=== PATIENT | female | born 1935 | race Caucasian/White ===

== ENCOUNTER 2021-06-17 11:44 | Observation (INO) ==
[2021-06-17] MEDS ORDERED: SODIUM CHLORIDE 0.9% 1000ML 1,000 ML IV ONE (12:24)
[2021-06-17] MEDS ORDERED: FAMOTIDINE 20MG IV PUSH 20 MG/5 ML SYR IV STA (12:29)
[2021-06-17] MEDS ORDERED: PROMETHAZINE 12.5 MG/50.5 ML BAG IV STA (12:29)
--- NOTE | 2021-06-17 12:35 | Emergency Department Note ---
Impression & Plan Pneumonia, Nausea and vomiting, Pericardial effusion, Elevated troponin ED Provider Note NAME: AZUL BAKER AGE: 86 SEX: F ARRIVES VIA: Ambulance INFORMANT: Patient, ED PROVIDER(S): Bethel Teixeira MD CHIEF COMPLAINT: cough, n/v. PLAN: Disposition: Admit MEDICAL DECISION MAKING: The patient is a pleasant 86-year-old woman with a past history of Alzheimer's dementia, hypertension, aortic stenosis who presents to the emergency department from home via EMS for acute onset nausea and vomiting with cough congestion for the past several days per EMS. She is vaccinated for COVID-19. Patient is a poor historian. On arrival the patient is uncomfortable no acute distress, afebrile febrile with blood pressure 180s/70s and vital signs otherwise stable. She appears clinically dry. She has mild epigastric discomfort without discrete tenderness to palpation. EKG without overt acute ischemia. CXR with question of left midlung zone opacity. WBC wnl. H/H approximate to prior. platelets wnl. Chemistry without acidosis. BUN/Cr > 20 c/w patient's clinically dry appearance. Electrolytes unremarkable. LFTs without significant abnormality. Initial Troponin 0.083. BNP 1800, nonspecific. Lipase is not elevated. UA without convincing evidence of infection. Covid-[address] abd/pelvis demonstrates nonspecific colitis. Intrlobular septal thickening was noted. Mild to moderate pericardial effusion seen. Upon re-evaluation the patient did feel improved following IVF hydration, zofran, phenergan, famotidine. However O2 saturation did decline to 88% on RA and so placed on NC. Treated for suspected CAP with CTX. Given elevated troponin in the setting suspected PNA. Patient and son at [facility] agreed with plan for admission. Case was discussed with Dr. Jane, [facility] hospitalist, who will evaluate the patient for admission. Triage Nursing notes reviewed and agree them. Prior medical records reviewed Vital Signs: reviewed and remarkable for hypoxia. Differential diagnosis: Gastroenteritis, food borne illness, infections, appendicitis, diverticulitis, inflammatory bowel disease, obstruction, GI bleed, biliary pathology, volvulus, as well as other pathologies. ER treatment provided: See below. Diagnostics interpreted by me: ECG: Normal sinus rhythm, 65 bpm, likely LVH, no overt ST elevation or depression. Cardiac Monitoring: An order for continuous cardiac monitoring was placed and demonstrated Normal sinus rhythm, 65 bpm, no ectopy. Laboratory studies: See below Imaging studies: See below Consultation(s): Case was discussed with Dr. jane, [facility] hospitalist, who will evaluate the patient for admission. HPI: The patient is a pleasant 86-year-old woman with a past history of Alzheimer's dementia, hypertension, aortic stenosis who presents to the emergency department from home via EMS for acute onset nausea and vomiting with cough congestion for the past several days per EMS. She is vaccinated for COVID-19. Patient is a poor historian. ROS: See above HPI for pertinent positives & negatives. A total of 10 systems reviewed and were otherwise negative. PAST MEDICAL HISTORY:See Below PAST SURGICAL HISTORY:See Below FAMILY HISTORY:See Below SOCIAL HISTORY:See Below HOME MEDICATIONS:See Below ALLERGIES:See Below VITALS:See Below PHYSICAL EXAMINATION: GENERAL: Awake, alert, uncomfortable-appearing, in no distress HENT: Normocephalic, atraumatic. Oropharynx with dry mucous membranes and otherwise unremarkable. EYES: Normal conjunctiva. Sclera non-icteric. NECK: Supple. No nuchal rigidity. FROM. No JVD. RESPIRATORY: Clear to auscultation. CARDIAC: Regular rate, normal rhythm. 3/6 systolic murmur. extremities warm and well perfused. Pulses equal. ABDOMEN: Soft, non-distended. Epigastric discomfort without discrete tenderness to palpation. No rebound or guarding. No masses. RECTAL: Deferred. MUSCULOSKELETAL: Chest examination reveals no tenderness. The back is symmetri ashley on inspection without obvious abnormality. There is no CVA tenderness to palpation. No joint edema. LOWER EXTREMITIES: Calves are equal size bilaterally and non-tender. No edema. No discoloration. NEURO: Normal sensorium. No sensory or motor deficits noted. SKIN: No rash or jaundice noted. Bethel Teixeira MD Past Med/Surg History Medical History Age-related macular degeneration, wet, both eyes Caregiver stress Cerebral microvascular disease Chronic anemia Chronic right shoulder pain Family history of colon cancer History of breast cancer HTN (hypertension) Injury of right upper arm Kidney stones Left carotid bruit Moderate aortic stenosis Multiple renal cysts Pulmonary nodules Submandibular gland mass Surgical History H/O lithotripsy History of partial mastectomy with axilary of lymphadenectomy R breast History of tonsillectomy and adenoidectomy Hx of tonsillectomy Status post biopsy of skin Family History Father Myocardial infarction Hypertension Lung cancer Mother Hypertension Denies family history of Ovarian cancer Prostate cancer Breast cancer Colorectal cancer Social History Smoking Status: Never smoker Second Hand Exposure: No; Hx Alcohol Use: No Hx Substance Use: No Preferred Language: Turkish Communication Ability: Effective Visual Impairment: Limited Hearing Ability: Normal 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 Beliefs That Will Affect Care: None marital status: Current Living Situation: Spouse Current Living Situation Comment: home with son and current occupational status: retired Other Information That Helps Us Care for You: No Feels Safe at Home: Yes Safety Concerns: Feels Safe At This Time caffeine: Yes (Coffee x 1 cup per day) during the past year weight has: remained stable Physical Activity Frequency: Daily Physical Activity Frequency Comment: stairs in home Seatbelt Use: always Sunscreen Use: No (never in sun) Assistive Devices: Walker Allergies Allergies Allergy/AdvReac Type Severity Reaction Status Date / Time oxycodone Allergy Intermediate chest pain Verified 06/17/21 15:51 acetaminophen Allergy Unknown HEART Verified 06/17/21 15:51 RACING clarithromycin Allergy Unknown unknown Verified 06/17/21 15:51 Home Meds Home Medications Medication Instructions Recorded Confirmed [id number] acid 0.4 1 tab PO DAILY 07/17/19 06/17/21 mg-lycopene 300 mcg-lutein 250 mcg tablet (Centrum Silver) Previous Rx's Medication Instructions Recorded lorazepam 0.5 mg tablet 0.25 - 0.5 mg PO DAILY PRN #20 tab 08/14/19 ramipril 2.5 mg capsule 2.5 mg PO DAILY #90 cap 11/05/20 escitalopram oxalate 20 mg tablet 20 mg PO DAILY #90 tab 12/26/20 donepezil 10 mg tablet 10 mg PO DAILY #90 tab 02/21/21 Results & Data (ED) Vital Signs Vital Signs - 24 hr 06/17/21 12:29 06/17/21 13:16 06/17/21 13:18 Temperature 36.5 C Temperature Source Oral Pulse Rate 88 62 86 Pulse Rate [Apical] Pulse Rate from SpO2 Sensor 61 Pulse Rhythm Regular Regular Pulse Strength Normal Respiratory Rate 20 16 20 Respiratory Effort / Characteristics Non-Labored Spontaneous Respiratory Depth Normal Respiratory Pattern Regular Blood Pressure 188/73 H 171/72 H Blood Pressure [Right Arm] Blood Pressure Mean 111 105 Blood Pressure Mean [Right Arm] Blood Pressure Position Sitting Blood Pressure Position [Right Arm] Pulse Oximetry 98 99 98 Oxygen Delivery Method Room Air Room Air Oxygen Flow Rate Sepsis Recent Fever Within 48 Hours No Sepsis New/Unexplained Change in Mental Status No Sepsis Action Taken by Nursing No Action Required 06/17/21 15:15 06/17/21 15:22 Temperature Temperature Source Pulse Rate Pulse Rate [Apical] 71 70 Pulse Rate from SpO2 Sensor Pulse Rhythm Pulse Strength Respiratory Rate 20 20 Respiratory Effort / Characteristics Respiratory Depth Respiratory Pattern Blood Pressure Blood Pressure [Right Arm] 199/108 H 190/66 H Blood Pressure Mean Blood Pressure Mean [Right Arm] 138 107 Blood Pressure Position Blood Pressure Position [Right Arm] Lying Pulse Oximetry 89 L 90 Oxygen Delivery Method Room Air Nasal Cannula Oxygen Flow Rate 2 Sepsis Recent Fever Within 48 Hours Sepsis New/Unexplained Change in Mental Status Sepsis Action Taken by Nursing Laboratory Data Attestation: I reviewed the patient's lab results. Result diagrams: 06/18/21 01:10 06/18/21 01:10 Lab Results 06/17/21 06/17/21 06/17/21 Range/Units 12:42 12:42 13:15 WBC 6.20 (4.8-10.8) K/uL RBC 3.23 L (4.2-5.4) M/uL Hgb 9.9 L (12.0-16.0) g/dL Hct 30.4 L (37-47) % MCV 94.1 (80-100) fL MCH 30.7 (25-34) pg MCHC 32.6 (32-36) g/dL RDW Std Deviation 46.3 (36.4-46.3) fL RDW Coeff of Deni 13.4 (11.5-14.5) % Plt Count 141 (130-400) K/uL MPV 10.1 (7.4-10.4) fL Immature Gran % (Auto) 0.2 % Neut % (Auto) 87.0 % Lymph % (Auto) 9.5 % Ware % (Auto) 2.9 % Eos % (Auto) 0.2 % Baso % (Auto) 0.2 % Neut # (Auto) 5.40 (1.4-6.5) K/uL Lymph # (Auto) 0.59 L (1.2-3.4) K/uL Ware # (Auto) 0.18 (0.11-0.59) K/uL Eos # (Auto) 0.01 (0-0.5) K/uL Baso # (Auto) 0.01 (0-0.2) K/uL Immature Gran # (Auto) 0.01 (0.00-0.02) K/uL APTT (21.0-31.0) Seconds PTT Ratio Sodium (136-145) mmol/L Potassium (3.5-5.1) mmol/L Chloride (98-107) mmol/L Carbon Dioxide (21-32) mmol/L Anion Gap (3-11) BUN (7-18) mg/dl Creatinine (0.6-1.2) mg/dl Est Cr Clr Drug Dosing ml/min Est GFR ( Amer) ml/min Est GFR (Non-Af Amer) ml/min BUN/Creatinine Ratio (10-20) Glucose (70-99) mg/dl Calcium (8.5-10.1) mg/dl Phosphorus (2.5-4.9) mg/dl Magnesium (1.8-2.4) mg/dl Total Bilirubin (0.2-1) mg/dl Direct Bilirubin (0-0.2) mg/dl AST (15-37) U/L ALT (12-78) U/L Alkaline Phosphatase (45-117) U/L Troponin I (0-0.045) ng/ml NT-Pro-B Natriuret Pep (0-1800) pg/ml Total Protein (6.4-8.2) gm/dl Albumin (3.4-5.0) gm/dl Globulin (2.5-4.0) gm/dl Albumin/Globulin Ratio (0.9-2) Lipase (73-393) U/L Procalcitonin (0-0.5) ng/ml COVID-19 Eval Order Covid19 at [facility] SARS-CoV-2 (PCR) NEGATIVE (Negative) 06/17/21 06/17/21 06/17/21 Range/Units 13:15 13:15 13:15 WBC (4.8-10.8) K/uL RBC (4.2-5.4) M/uL Hgb (12.0-16.0) g/dL Hct (37-47) % MCV (80-100) fL MCH (25-34) pg MCHC (32-36) g/dL RDW Std Deviation (36.4-46.3) fL RDW Coeff of Deni (11.5-14.5) % Plt Count (130-400) K/uL MPV (7.4-10.4) fL Immature Gran % (Auto) % Neut % (Auto) % Lymph % (Auto) % Ware % (Auto) % Eos % (Auto) % Baso % (Auto) % Neut # (Auto) (1.4-6.5) K/uL Lymph # (Auto) (1.2-3.4) K/uL Ware # (Auto) (0.11-0.59) K/uL Eos # (Auto) (0-0.5) K/uL Baso # (Auto) (0-0.2) K/uL Immature Gran # (Auto) (0.00-0.02) K/uL APTT 21.1 (21.0-31.0) Seconds PTT Ratio 0.8 Sodium 144 (136-145) mmol/L Potassium 3.9 (3.5-5.1) mmol/L Chloride 115 H (98-107) mmol/L Carbon Dioxide 25 (21-32) mmol/L Anion Gap 5.0 (3-11) BUN 24 H (7-18) mg/dl Creatinine 0.98 (0.6-1.2) mg/dl Est Cr Clr Drug Dosing 31.2 ml/min Est GFR ( Amer) 60.5 ml/min Est GFR (Non-Af Amer) 52.2 ml/min BUN/Creatinine Ratio 24.7 H (10-20) Glucose 132 H (70-99) mg/dl Calcium 8.9 (8.5-10.1) mg/dl Phosphorus 3.5 (2.5-4.9) mg/dl Magnesium 1.9 (1.8-2.4) mg/dl Total Bilirubin 0.4 (0.2-1) mg/dl Direct Bilirubin < 0.1 (0-0.2) mg/dl AST 19 (15-37) U/L ALT 27 (12-78) U/L Alkaline Phosphatase 87 (45-117) U/L Troponin I 0.083 H* (0-0.045) ng/ml NT-Pro-B Natriuret Pep 1864 H (0-1800) pg/ml Total Protein 6.6 (6.4-8.2) gm/dl Albumin 3.4 (3.4-5.0) gm/dl Globulin 3.2 (2.5-4.0) gm/dl Albumin/Globulin Ratio 1.1 (0.9-2) Lipase 319 (73-393) U/L Procalcitonin (0-0.5) ng/ml COVID-19 Eval Order SARS-CoV-2 (PCR) (Negative) 06/17/21 Range/Units 13:18 WBC (4.8-10.8) K/uL RBC (4.2-5.4) M/uL Hgb (12.0-16.0) g/dL Hct (37-47) % MCV (80-100) fL MCH (25-34) pg MCHC (32-36) g/dL RDW Std Deviation (36.4-46.3) fL RDW Coeff of Deni (11.5-14.5) % Plt Count (130-400) K/uL MPV (7.4-10.4) fL Immature Gran % (Auto) % Neut % (Auto) % Lymph % (Auto) % Ware % (Auto) % Eos % (Auto) % Baso % (Auto) % Neut # (Auto) (1.4-6.5) K/uL Lymph # (Auto) (1.2-3.4) K/uL Ware # (Auto) (0.11-0.59) K/uL Eos # (Auto) (0-0.5) K/uL Baso # (Auto) (0-0.2) K/uL Immature Gran # (Auto) (0.00-0.02) K/uL APTT (21.0-31.0) Seconds PTT Ratio Sodium (136-145) mmol/L Potassium (3.5-5.1) mmol/L Chloride (98-107) mmol/L Carbon Dioxide (21-32) mmol/L Anion Gap (3-11) BUN (7-18) mg/dl Creatinine (0.6-1.2) mg/dl Est Cr Clr Drug Dosing ml/min Est GFR ( Amer) ml/min Est GFR (Non-Af Amer) ml/min BUN/Creatinine Ratio (10-20) Glucose (70-99) mg/dl Calcium (8.5-10.1) mg/dl Phosphorus (2.5-4.9) mg/dl Magnesium (1.8-2.4) mg/dl Total Bilirubin (0.2-1) mg/dl Direct Bilirubin (0-0.2) mg/dl AST (15-37) U/L ALT (12-78) U/L Alkaline Phosphatase (45-117) U/L Troponin I (0-0.045) ng/ml NT-Pro-B Natriuret Pep (0-1800) pg/ml Total Protein (6.4-8.2) gm/dl Albumin (3.4-5.0) gm/dl Globulin (2.5-4.0) gm/dl Albumin/Globulin Ratio (0.9-2) Lipase (73-393) U/L Procalcitonin < 0.05 (0-0.5) ng/ml COVID-19 Eval Order SARS-CoV-2 (PCR) (Negative) Administered Medications Ondansetron HCl (Ondansetron Inj 2 Mg/Ml 2 Ml Vial) 4 mg IV Q6H PRN PRN Reason: Nausea Stop: 07/17/21 19:18 Last Admin: 06/17/21 20:30 Dose: 4 mg Documented by: [id number] Discontinued Medications Aspirin (Aspirin 300 Mg Supp) 300 mg TN ONE STA Stop: 06/17/21 19:40 Last Admin: 06/17/21 20:30 Dose: Not Given Documented by: [id number] Aspirin (Aspirin 81 Mg Chew) 324 mg PO ONE STA Stop: 06/17/21 19:43 Last Admin: 06/17/21 20:30 Dose: 324 mg Documented by: [id number] Sodium Chloride (Nss 1000ml) 1,000 mls @ 999 mls/hr IV .Q1H1M ONE Stop: 06/17/21 13:24 Last Infusion: 06/17/21 13:43 Dose: 0 mls/hr Documented by: [id number] Admin: 06/17/21 12:42 Dose: 999 mls/hr Documented by: [id number] Famotidine (Pepcid 20mg Iv Push) 20 mg in 5 mls @ 2.5 mls/min IV NOW STA Stop: 06/17/21 12:30 Last Admin: 06/17/21 12:42 Dose: 2.5 mls/min Documented by: [id number] Promethazine HCl (Phenergan) 12.5 mg in 50.5 mls @ 202 mls/hr IV NOW STA Stop: 06/17/21 12:43 Last Infusion: 06/17/21 12:57 Dose: 0 mls/hr Documented by: [id number] Admin: 06/17/21 12:42 Dose: 202 mls/hr Documented by: [id number] Ceftriaxone Sodium (Rocephin) 1,000 mg in 50 mls @ 100 mls/hr IV NOW STA Stop: 06/17/21 15:56 Last Infusion: 06/17/21 16:12 Dose: 0 mls/hr Documented by: [id number] Admin: 06/17/21 15:50 Dose: 100 mls/hr Documented by: [id number] Ioversol (Optiray 320 100ml) 94 ml IV ONCE ONE Stop: 06/17/21 14:51 Last Admin: 06/17/21 14:50 Dose: 94 ml Documented by: [id number] Ondansetron HCl (Ondansetron Inj 2 Mg/Ml 2 Ml Vial) Confirm Administered Dose 4 mg .ROUTE .STK-MED ONE Stop: 06/17/21 17:15 Last Admin: 06/17/21 17:18 Dose: 4 mg Documented by: [id number] Imaging Data Radiologist's Impression: Abdomen/Pelvis CT 06/17/21 12:30 CT SCAN OF THE ABDOMEN AND PELVIS WITH IV CONTRAST CLINICAL HISTORY: Generalized abdominal pain. Nausea and vomiting. COMPARISON STUDY: Abdominal CT dated 03/12/2015. TECHNIQUE: Following the IV administration of 94 cc of Optiray 320, CT scan of the abdomen and pelvis is performed from the lung bases to the proximal femora. Images are reviewed in the axial, sagittal, and coronal planes. IV contrast was administered without complication. A dose lowering technique was utilized adhe ring to the principles of ALARA. CT DOSE: 401.22 mGy.cm FINDINGS: Lung bases: The heart is enlarged noting a small to moderate pericardial effusion. The aortic valve leaflets are densely calcified. Intralobular septal thickening is noted at both lung bases. There is bibasilar scarring/atelectasis. No airspace consolidation typical for pneumonia or pleural effusion is identified. There is a small hiatal hernia. A 1.7 cm spiculated nodule is suggested in the retroareolar right breast on image #3. Liver: The contrast-enhanced liver is normal in size, contour, and attenuation. There is no intrahepatic biliary ductal dilatation. The hepatic veins and portal veins are patent. Gallbladder: Unremarkable. Spleen: Normal in size and attenuation. Pancreas: Unremarkable. Adrenal glands: Unremarkable. Kidneys: The contrast enhanced kidneys demonstrate mild cortical atrophy and are and without hydronephrosis. The kidneys enhance symmetrically. Foci of cortical scarring are noted in the right upper pole. A 4 mm nonobstructing calculus is seen on the left. Abdominal vasculature: The abdominal aorta is normal in course and caliber noting moderate atherosclerotic calcification. Bowel: There is no bowel obstruction. The colon is relatively decompressed. Infiltration is seen around the left colon. There is mild colonic diverticulosis without CT evidence of acute diverticulitis. The appendix is well-visualized and normal. Peritoneum: There is no intraperitoneal free air or abdominal ascites. Lymphadenopathy: None. Pelvic viscera: The bladder, uterus, and adnexa are normal as visualized. Skeletal structures: The skeletal structures are osteopenic. There is moderate to advanced lumbosacral spondylosis and scoliosis. No lytic or blastic lesions are seen. IMPRESSION: 1. Findings suggest a nonspecific colitis. Clinical correlation will be required. 2. No bowel obstruction. 3. A 1.7 cm spiculated nodule is suggested in the retroareolar right breast. This is not well assessed by CT and follow-up with mammography is recommended. 4. Cardiomegaly. Intralobular septal thickening at the lung bases could represent acute versus chronic congestive change. Clinical correlation will be required. 5. Left-sided nephrolithiasis. 6. Additional findings as above. ACT 112: Negative or not required by law. Electronically signed by: Bigg Diaz M.D. 06/17/2021 3:11 PM Discharge Plan Visit Data Chief Complaint: Vomiting Stated Complaint: ILLNESS ED Provider: Bethel Teixeira Discharge Problem: Pneumonia, Nausea and vomiting, Pericardial effusion, Elevated troponin Patient Disposition: Admitted As Inpatient Discharge Instructions Interventions: ED Discharge Assessment Last Done: 06/17/21 17:56 Discharge Problem: Pneumonia Qualifiers: Pneumonia type: due to unspecified organism Laterality: unspecified laterality Lung location: unspecified part of lung Qualified Code(s): J18.9 - Pneumonia, unspecified organism Nausea and vomiting Qualifiers: Vomiting type: unspecified Vomiting Intractability: non-intractable Qualified Code(s): R11.2 - Nausea with vomiting, unspecified
[2021-06-17 13:25] LABS: Basophils # (auto) 0.01 K/uL (0-0.2); Basophils % (auto) 0.2 %; Eosinophils # (auto) 0.01 K/uL (0-0.5); Eosinophils % (auto) 0.2 %; Hematocrit (blood only) 30.4 % (37-47); Hemoglobin 9.9 g/dL (12.0-16.0); Immature Granulocytes # (auto) 0.01 K/uL (0.00-0.02); Immature Granulocytes % (auto) 0.2 %; Lymphocytes # (auto) 0.59 K/uL (1.2-3.4); Lymphocytes % (auto) 9.5 %; Mean Corpuscular Hemoglobin 30.7 pg (25-34); Mean Corpuscular Hgb Conc 32.6 g/dL (32-36); Mean Corpuscular Volume 94.1 fL (80-100); Mean Platelet Volume 10.1 fL (7.4-10.4); Monocytes # (auto) 0.18 K/uL (0.11-0.59); Monocytes % (auto) 2.9 %; Platelet Count 141 K/uL (130-400); RDW Coefficient of Variation 13.4 % (11.5-14.5); RDW Standard Deviation 46.3 fL (36.4-46.3); Red Blood Count 3.23 M/uL (4.2-5.4)
--- NOTE | 2021-06-17 13:26 | XRay Report ---
XR chest 1V portable HISTORY: Atypical Chest Pain COMPARISON: Chest 07/24/2015. FINDINGS: No pneumothorax. No pleural effusions. The heart remains mildly enlarged. There is mild chr onic interstitial thickening, unchanged. No evidence for pulmonary edema. A few bibasilar linear dens ities favor scarring or subsegmental atelectasis. This is also similar to the prior study. Focal dens ity at the periphery of the left of midlung zone may be due to overlapping soft tissue. IMPRESSION: Focal density within the peripheral of the left midlung zone which is new from the prior study. This could be due to overlapping soft tissue. This may be included on the same day abdomen and pelvis CT. Otherwise, consider repeat PA and lateral views of the chest to exclude the possibility of developing airspace opacity. ACT 112: Negative or not required by law. Electronically signed by: Sid Holland M.D. 06/17/2021 1:24 PM
[2021-06-17 13:35] LABS: Partial Thromboplastin Ratio 0.8; Partial Thromboplastin Time 21.1 Seconds (21.0-31.0)
[2021-06-17 13:42] LABS: Alanine Aminotransferase 27 U/L (12-78); Albumin Level 3.4 gm/dl (3.4-5.0); Aspartate Aminotransferase 19 U/L (15-37); BUN Creatinine Ratio 24.7 (10-20); Blood Urea Nitrogen 24 mg/dl (7-18); Calcium 8.9 mg/dl (8.5-10.1); Carbon Dioxide 25 mmol/L (21-32); Chloride 115 mmol/L (98-107); Creatinine Clr Calc Pharmacy 31.2 ml/min; Est GFR (African American) 60.5 ml/min; Est GFR (Non-African American) 52.2 ml/min; Glucose 132 mg/dl (70-99); Lipase 319 U/L (73-393); Magnesium 1.9 mg/dl (1.8-2.4); Potassium 3.9 mmol/L (3.5-5.1); Sodium 144 mmol/L (136-145)
[2021-06-17 13:53] LABS: Albumin Globulin Ratio 1.1 (0.9-2); Alkaline Phosphatase 87 U/L (45-117); Bilirubin Direct < 0.1 mg/dl (0-0.2); Bilirubin,Total 0.4 mg/dl (0.2-1); Globulin 3.2 gm/dl (2.5-4.0); Phosphorus 3.5 mg/dl (2.5-4.9); Total Protein 6.6 gm/dl (6.4-8.2); Troponin I 0.083 ng/ml (0-0.045)
[2021-06-17] MEDS ORDERED: OPTIRAY 320 100ml IV ONE (14:50)
--- NOTE | 2021-06-17 15:12 | CT Scan Report ---
CT SCAN OF THE ABDOMEN AND PELVIS WITH IV CONTRAST CLINICAL HISTORY: Generalized abdominal pain. Nausea and vomiting. COMPARISON STUDY: Abdominal CT dated 03/12/2015. TECHNIQUE: Following the IV administration of 94 cc of Optiray 320, CT scan of the abdomen and pelvi s is performed from the lung bases to the proximal femora. Images are reviewed in the axial, sagittal , and coronal planes. IV contrast was administered without complication. A dose lowering technique wa s utilized adhering to the principles of ALARA. CT DOSE: 401.22 mGy.cm FINDINGS: Lung bases: The heart is enlarged noting a small to moderate pericardial effusion. The aortic valve l eaflets are densely calcified. Intralobular septal thickening is noted at both lung bases. There is b ibasilar scarring/atelectasis. No airspace consolidation typical for pneumonia or pleural effusion is identified. There is a small hiatal hernia. A 1.7 cm spiculated nodule is suggested in the retroareo lar right breast on image #3. Liver: The contrast-enhanced liver is normal in size, contour, and attenuation. There is no intrahepa tic biliary ductal dilatation. The hepatic veins and portal veins are patent. Gallbladder: Unremarkable. Spleen: Normal in size and attenuation. Pancreas: Unremarkable. Adrenal glands: Unremarkable. Kidneys: The contrast enhanced kidneys demonstrate mild cortical atrophy and are and without hydronep hrosis. The kidneys enhance symmetrically. Foci of cortical scarring are noted in the right upper tracy e. A 4 mm nonobstructing calculus is seen on the left. Abdominal vasculature: The abdominal aorta is normal in course and caliber noting moderate atheroscle rotic calcification. Bowel: There is no bowel obstruction. The colon is relatively decompressed. Infiltration is seen arou nd the left colon. There is mild colonic diverticulosis without CT evidence of acute diverticulitis. The appendix is well-visualized and normal. Peritoneum: There is no intraperitoneal free air or abdominal ascites. Lymphadenopathy: None. Pelvic viscera: The bladder, uterus, and adnexa are normal as visualized. Skeletal structures: The skeletal structures are osteopenic. There is moderate to advanced lumbosacra l spondylosis and scoliosis. No lytic or blastic lesions are seen. IMPRESSION: 1. Findings suggest a nonspecific colitis. Clinical correlation will be required. 2. No bowel obstruction. 3. A 1.7 cm spiculated nodule is suggested in the retroareolar right breast. This is not well assesse d by CT and follow-up with mammography is recommended. 4. Cardiomegaly. Intralobular septal thickening at the lung bases could represent acute versus chroni c congestive change. Clinical correlation will be required. 5. Left-sided nephrolithiasis. 6. Additional findings as above. ACT 112: Negative or not required by law. Electronically signed by: Bigg Diaz M.D. 06/17/2021 3:11 PM
[2021-06-17] MEDS ORDERED: cefTRIAXone SODIUM 1,000 MG/50 ML BAG IV STA (15:27)
--- NOTE | 2021-06-17 15:49 | History & Physical Report ---
Date of Service June 17, 2021 Assessment & Plan (1) Nausea and vomiting: Plan: Ondansetron 4mg Q4H PRN Unclear etiology as poor historian No current chest pain or shortness of breath to suggest [place] but will trend troponins. Non-specific colitis on CT but no diarrhea. Stool culture ordered. Monitor for diarrhea. ?UTI, UA pending, suprapubic pain on exam ?PNA, non-convincing CXR, procalcitonin and WBC negative (2) Elevated troponin: Plan: Serial troponins TTE to assess for NV Monitor on med/tele (3) Normocytic anemia: Plan: Repeat CBC in AM. Hgb 9.9 in realm of prior values that range from 10-11 Suspect anemia of chronic disease. Will defer further workup to outpatient setting. 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 Follow up as outpatient per family discretion (5) Pericardial effusion: Plan: Probably an incidental finding. TTE to assess. No current chest pain or shortness of breath to suggest pericarditis. Serial troponins as above. (6) Moderate aortic stenosis: Plan: Repeat TTE (7) HTN (hypertension): Plan: Current sBP 160. Taking medication intermittently. (8) Dementia: Plan: Will hold her donepezil at current time as no short term benefit. Continue Lexapro. Plan: VTE prophylaxis - held pending further workup Diet - clear liquid, heart healthy, advance as nausea and vomiting improve Disposition - observation status to med/tele Admission and Anticipated Discharge Date Admission Date: June 17, 2021 History of Present Illness Chief Complaint: Nausea and vomiting Primary Care Provider: Ketan Wagner MD Yarely Dawson is an 86 year old female who presents to the ER with nausea and vomiting per EMS. The patient also notes shortness of breath and cough. She thinks she vomited once although history is unclear as the patient has known dementia. She reports maybe feeling like being smothered in her chest. She is unsure how she got to hospital. She denies any current chest pain, nausea, vomiting or shortness of breath. No diarrhea or abdominal pain. Her also has dementia and was not able to get any history over the phone from him. Discussed with her son (Martin) - no-one was there at the time but he reports his mother woke up vomiting and she called 911 and called Peter (son who lives with them) to look after her (also named Peter). She is having a lot of issues with sleeping at night and will sometimes go to bed in the early hours of the morning and wake up late morning and will sometimes forget her pills at that point. Patient is orientated to self only. Disorientated to year (2000) and place (aware she was in hospital but thought she was in [place]). In the ER she was given famotidine and Phenergan with good resolution of her symptoms. Troponin was notably elevated at 0.083 - no chest pain or shortness of breath noted by patient. CT A/P showed a non-specific colitis, 1.7cm spiculated nodule in retroareolar right breast and intralobular septal thickening at the lung bases, small to moderate size pericardial effusions. UA is pending. CXR showed possible focal density in left midlung zone although WBC and procalcitonin negative. She was referred to Medicine for admission and ongoing management of elevated troponin, PNA, nausea and vomting. Allergies Allergy/AdvReac Type Severity Reaction Status Date / Time oxycodone Allergy Intermediate chest pain Verified 06/17/21 15:51 acetaminophen Allergy Unknown HEART Verified 06/17/21 15:51 RACING clarithromycin Allergy Unknown unknown Verified 06/17/21 15:51 Home Medications Medication Instructions Recorded Confirmed Type zheyigwh-[id number] acid 0.4 1 tab PO DAILY 07/17/19 06/17/21 History mg-lycopene 300 mcg-lutein 250 mcg tablet (Centrum Silver) lorazepam 0.5 mg tablet 0.25 - 0.5 mg PO DAILY PRN #20 tab 08/14/19 06/17/21 Rx ramipril 2.5 mg capsule 2.5 mg PO DAILY #90 cap 11/05/20 06/17/21 Rx escitalopram oxalate 20 mg tablet 20 mg PO DAILY #90 tab 12/26/20 06/17/21 Rx donepezil 10 mg tablet 10 mg PO DAILY #90 tab 02/21/21 06/17/21 Rx Past Med/Surg History Medical History Age-related macular degeneration, wet, both eyes Caregiver stress Cerebral microvascular disease Chronic anemia Chronic right shoulder pain Family history of colon cancer History of breast cancer HTN (hypertension) Injury of right upper arm Kidney stones Left carotid bruit Moderate aortic stenosis Multiple renal cysts Pulmonary nodules Submandibular gland mass Surgical History H/O lithotripsy History of partial mastectomy with axilary of lymphadenectomy R breast History of tonsillectomy and adenoidectomy Hx of tonsillectomy Status post biopsy of skin Family History Father Myocardial infarction Hypertension Lung cancer Mother Hypertension Denies family history of Ovarian cancer Prostate cancer Breast cancer Colorectal cancer Social History Smoking Status: Never smoker Second Hand Exposure: No; Hx Alcohol Use: No Hx Substance Use: No Preferred Language: Afghan Communication Ability: Effective Visual Impairment: Limited Hearing Ability: Normal Senior Reservations Agent Required: No Beliefs That Will Affect Care: None marital status: Current Living Situation: Spouse Current Living Situation Comment: home with son and current occupational status: retired Other Information That Helps Us Care for You: No Feels Safe at Home: Yes Safety Concerns: Feels Safe At This Time caffeine: Yes (Coffee x 1 cup per day) during the past year weight has: remained stable Physical Activity Frequency: Daily Physical Activity Frequency Comment: stairs in home Seatbelt Use: always Sunscreen Use: No (never in sun) Assistive Devices: Walker Review of Systems Review of Systems: All systems reviewed & are unremarkable except as noted in HPI & below Physical Exam Constitutional: well developed; + not well nourished and no acute distress Eyes: PERRL, conjunctivae normal, anicteric sclerae ENMT: external ear and nose normal, oropharynx normal Neck: trachea midline, no thyromegaly Respiratory: normal respiratory effort, lungs clear to auscultation Cardiovascular: Rate/Rhythm: regular rate and regular rhythm Heart Sounds: + murmur (systolic throughout loudest LUSB 5/6) Extremities: normal capillary refill; no calf tenderness and no pedal edema Gastrointestinal (Abdomen): Percussion/Palpation: + abdomen tender (suprapubic) and abdomen soft; no guarding and abdomen not rigid Skin: no rashes, warm and dry (venous dermatitis changes present) Psychiatric: Orientation: alert and oriented to person (self); + not oriented to place and + not oriented to time Genitourinary: no CVA tenderness Results & Data Results & Data ([facility]) Vital Signs (Past 12 Hours) Vital Signs Temp Pulse Pulse Resp BP BP Pulse Ox 06/17/21 15:22 70 20 190/66 H 90 06/17/21 15:15 71 20 199/108 H 89 L 06/17/21 13:18 86 20 98 06/17/21 13:16 62 16 171/72 H 99 06/17/21 12:29 36.5 C 88 20 188/73 H 98 Diagnostic Findings XR chest 1V portable HISTORY: Atypical Chest Pain COMPARISON: Chest 07/24/2015. FINDINGS: No pneumothorax. No pleural effusions. The heart remains mildly enlarged. There is mild chronic interstitial thickening, unchanged. No evidence for pulmonary edema. A few bibasilar linear densities favor scarring or subsegmental atelectasis. This is also similar to the prior study. Focal density at the periphery of the left of midlung zone may be due to overlapping soft tissue. IMPRESSION: Focal density within the peripheral of the left midlung zone which is new from the prior study. This could be due to overlapping soft tissue. This may be included on the same day abdomen and pelvis CT. Otherwise, consider repeat PA and lateral views of the chest to exclude the possibility of developing airspace opacity. CT SCAN OF THE ABDOMEN AND PELVIS WITH IV CONTRAST CLINICAL HISTORY: Generalized abdominal pain. Nausea and vomiting. COMPARISON STUDY: Abdominal CT dated 03/12/2015. TECHNIQUE: Following the IV administration of 94 cc of Optiray 320, CT scan of the abdomen and pelvis is performed from the lung bases to the proximal femora. Images are reviewed in the axial, sagittal, and coronal planes. IV contrast was administered without complication. A dose lowering technique was utilized adhering to the principles of ALARA. CT DOSE: 401.22 mGy.cm FINDINGS: Lung bases: The heart is enlarged noting a small to moderate pericardial effusion. The aortic valve leaflets are densely calcified. Intralobular septal thickening is noted at both lung bases. There is bibasilar scarring/atelectasis. No airspace consolidation typical for pneumonia or pleural effusion is identified. There is a small hiatal hernia. A 1.7 cm spiculated nodule is suggested in the retroareolar right breast on image #3. Liver: The contrast-enhanced liver is normal in size, contour, and attenuation. There is no intrahepatic biliary ductal dilatation. The hepatic veins and portal veins are patent. Gallbladder: Unremarkable. Spleen: Normal in size and attenuation. Pancreas: Unremarkable. Adrenal glands: Unremarkable. Kidneys: The contrast enhanced kidneys demonstrate mild cortical atrophy and are and without hydronephrosis. The kidneys enhance symmetrically. Foci of cortical scarring are noted in the right upper pole. A 4 mm nonobstructing calculus is seen on the left. Abdominal vasculature: The abdominal aorta is normal in course and caliber noting moderate atherosclerotic calcification. Bowel: There is no bowel obstruction. The colon is relatively decompressed. Infiltration is seen around the left colon. There is mild colonic diverticulosis without CT evidence of acute diverticulitis. The appendix is well-visualized and normal. Peritoneum: There is no intraperitoneal free air or abdominal ascites. Lymphadenopathy: None. Pelvic viscera: The bladder, uterus, and adnexa are normal as visualized. Skeletal structures: The skeletal structures are osteopenic. There is moderate to advanced lumbosacral spondylosis and scoliosis. No lytic or blastic lesions are seen. IMPRESSION: 1. Findings suggest a nonspecific colitis. Clinical correlation will be r equired. 2. No bowel obstruction. 3. A 1.7 cm spiculated nodule is suggested in the retroareolar right breast. This is not well assessed by CT and follow-up with mammography is recommended. 4. Cardiomegaly. Intralobular septal thickening at the lung bases could represent acute versus chronic congestive change. Clinical correlation will be required. 5. Left-sided nephrolithiasis. 6. Additional findings as above. Medications Administered ER Medications Given: NSS 1L bolus Famotidine 20mg IV Promethazine 12.5mg IV Ceftriaxone 1g IV Code Status & VTE Plan Code Status Full - son (Martin) will discuss with the rest of the family regarding this VTE Prophylaxis Plan VTE Prophylaxis will be ordered: Yes PG Care Time/CCT Total # of Minutes Spent Total Time Spent with Patient: Total time spent is greater than 50% in coordination of care (as documented) at patient's floor/unit and/or counseling patient: Coding Level of Care Code INT OBSERVATION CARE 70M LVL 3 Diagnoses Nausea and vomiting R11.2 Pericardial effusion I31.3 Elevated troponin R77.8 Moderate aortic stenosis I35.0 HTN (hypertension) I10 Dementia F03.90 Breast nodule N63.0 Normocytic anemia D64.9
[2021-06-17] MEDS ORDERED: ONDANSETRON INJ 2 MG/ML 2 ML VIAL ONE (17:14)
[2021-06-17] MEDS ORDERED: ONDANSETRON INJ 2 MG/ML 2 ML VIAL IV PRN (19:19)
[2021-06-17] MEDS ORDERED: ASPIRIN 300 MG SUPP PR STA (19:39)
[2021-06-17] MEDS ORDERED: ASPIRIN 81 MG CHEW PO STA (19:42)
[2021-06-17] MEDS ORDERED: NITROGLYCERIN SL 0.4 MG/TAB TAB SL PRN (19:53)
[2021-06-17 20:38] LABS: Appearance Urine Clear (Clear); Bilirubin Urine Negative (Negative); Blood Urine Negative (Negative); Color Urine Yellow; Glucose Urine UA Negative (Negative); Ketones Urine Negative (Negative); Leukocyte Esterase Urine Negative (Negative); Nitrite Urine Negative (Negative); Protein Urine Negative (Negative); Specific Gravity Urine > 1.045 (1.000-1.030); Urobilinogen Urine Negative (Negative); pH Urine 5.5 (4.5-7.5)
--- NOTE | 2021-06-17 22:48 | Electrocardiogram Report ---
Test Reason : Blood Pressure : / mmHG Vent. Rate : 065 BPM Atrial Rate : 065 BPM P-R Int : 202 ms QRS Dur : 086 ms QT Int : 456 ms P-R-T Axes : 082 001 021 degrees QTc Int : 474 ms Poor data quality, interpretation may be adversely affected Normal sinus rhythm Possible Inferior infarct , age undetermined Poor R wave progression, consider anterior GA vs. lead placement vs. LVH Abnormal ECG When compared with ECG of 24-JUL-2015 12:52, Inferior infarct is now Present Confirmed by Jaziel Staton ([id number]) on 06/17/2021 10:48:27 PM Referred By: REFERRED SELF Confirmed By:Jaziel Staton
[2021-06-18 01:21] LABS: Hemoglobin 9.1 g/dL (12.0-16.0); Immature Granulocytes # (auto) 0.02 K/uL (0.00-0.02); Immature Granulocytes % (auto) 0.3 %; Lymphocytes # (auto) 0.68 K/uL (1.2-3.4); Lymphocytes % (auto) 11.8 %; Mean Corpuscular Hemoglobin 30.6 pg (25-34); Mean Corpuscular Hgb Conc 32.5 g/dL (32-36); Mean Corpuscular Volume 94.3 fL (80-100); Mean Platelet Volume 9.9 fL (7.4-10.4); Monocytes # (auto) 0.25 K/uL (0.11-0.59); Monocytes % (auto) 4.4 %; Neutrophils # (auto) 4.79 K/uL (1.4-6.5); Neutrophils % (auto) 83.5 %; Platelet Count 149 K/uL (130-400); RDW Coefficient of Variation 13.6 % (11.5-14.5); RDW Standard Deviation 46.5 fL (36.4-46.3); Red Blood Count 2.97 M/uL (4.2-5.4); White Blood Count 5.74 K/uL (4.8-10.8)
[2021-06-18 02:06] LABS: BUN Creatinine Ratio 22.4 (10-20); Calcium 8.3 mg/dl (8.5-10.1); Creatinine Clr Calc Pharmacy 38.2 ml/min; Est GFR (African American) 55.1 ml/min; Est GFR (Non-African American) 47.5 ml/min; Potassium 4.7 mmol/L (3.5-5.1)
[2021-06-18 07:23] LABS: Estimated Average Glucose 97 mg/dl
[2021-06-18] MEDS ORDERED: FAMOTIDINE 20 MG in SYRINGE 3 ML IV SCH (09:00)
[2021-06-18] MEDS ORDERED: ESCITALOPRAM OXALATE 20 MG TAB PO SCH (09:00)
[2021-06-18] MEDS ORDERED: CEROVITE ADV FORMULA TAB PO SCH (09:00)
[2021-06-18] MEDS ORDERED: ENALAPRIL MALEATE 10 MG TAB PO SCH (09:00)
--- NOTE | 2021-06-18 12:42 | Hospitalist Progress Note ---
Date of Service June 18, 2021 Assessment & Plan (1) Nausea and vomiting: Plan: Improved - Unclear etiology as poor historian - No current chest pain or shortness of breath to suggest [place] but will trend troponins. - Non-specific colitis on CT but no diarrhea. Stool culture pending. Monitor for diarrhea. - UA negative - CXR: ?soft tissue vs PNA, CT-f/u shows no airspace consolidation consistent with PNA. Procalcitonin and WBC negative - Troponins as below (2) Elevated troponin: Plan: - Troponin leak , downtrending. 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 Follow up as outpatient per family discretion (5) Pericardial effusion: Plan: - TTE pending - No clinical signs of pericarditis - ?incidental - pending lyme sero (6) Moderate aortic stenosis: Plan: Repeat TTE (7) HTN (hypertension): Plan: - Normotensive - enalapril 10mg daily (8) Dementia: Plan: - hold her donepezil at current time as no short term benefit. Continue Lexapro. Plan: VTE prophylaxis - held pending further workup Diet - full liquid, heart healthy, advance as nausea and vomiting improve Disposition - med/tele Admission and Anticipated Discharge Date Admission Date: June 17, 2021 Stanley Pritchett seen at the bedside this morning. She is in no acute distress, denies nausea and vomiting today. Poor historian, believes it is 2001 but otherwise is pleasant, oriented to name, answers questions appropriately. Is not oriented to building. She denies chest pain, chest pressure, shortness of breath. Is not sure why she is in the hospital, denies vomiting and nausea today. Reports that she feels she has a "okay appetite. Review of Systems Review of Systems: Unobtainable due to cognitive status Unreliable due to dementia, but no symptoms positive on 10 point review of systems Physical Exam Physical Exam: General: Oriented to name only. No acute distress, cooperative. HEENT: Atraumatic, normocephalic. Visual acuity and hearing grossly intact. Pulm: CTAB A&P. -wheezes, -rales, -rhonchi. Symmetrical chest rise. No increase work of breathing. No respiratory distress. Cardiac: RRR, plus systolic murmur,. Radial pulses intact and symmetrical. Abdominal: Minimal tenderness suprapubic/infraumbilically without guarding or rebound,, nondistended, soft. BS present. Extremities: Chronic venous stasis changes, nontender. Results & Data Results & Data ([facility]) Vital Signs (Past 12 Hours) Vital Signs Temp Pulse Pulse Pulse Resp BP BP 06/18/21 11:59 37.3 C 67 18 118/63 06/18/21 07:41 36.9 C 61 20 133/63 06/18/21 07:20 60 06/18/21 02:56 36.9 C 61 20 153/57 H Pulse Ox 06/18/21 11:59 96 06/18/21 07:41 98 06/18/21 07:20 06/18/21 02:56 92 PG Care Time/CCT Total # of Minutes Spent Total Time Spent with Patient: Total time spent is greater than 50% in coordination of care (as documented) at patient's floor/unit and/or counseling patient: Coding Level of Care Code 00121 Subseq Hosp Care Lvl 2 Diagnoses Nausea and vomiting R11.2 Vomiting Intractability: non-intractable Vomiting type: unspecified Elevated troponin R77.8 Normocytic anemia D64.9 Breast nodule N63.0 Pericardial effusion I31.3 Moderate aortic stenosis I35.0 HTN (hypertension) I10 Dementia F03.90 (1) Nausea and vomiting Vomiting Intractability: non-intractable Vomiting type: unspecified Qualified Code(s): R11.2 - Nausea with vomiting, unspecified
[2021-06-18 14:07] LABS: Lyme Ab IgG w/WB Rflx Negative (Negative); Lyme Ab IgM w/WB Rflx Negative (Negative)
[2021-06-18] MEDS ORDERED: LORazepam 0.5 MG/1 ML VIAL IV STA (15:29)
--- NOTE | 2021-06-18 16:03 | Discharge Summary ---
Date of Service June 18, 2021 Admission HPI Per Admitting Provider Yarely Dawson is an 86 year old female who presents to the ER with nausea and vomiting per EMS. The patient also notes shortness of breath and cough. She thinks she vomited once although history is unclear as the patient has known dementia. She reports maybe feeling like being smothered in her chest. She is unsure how she got to hospital. She denies any current chest pain, nausea, vomiting or shortness of breath. No diarrhea or abdominal pain. Her also has dementia and was not able to get any history over the phone from him. Discussed with her son (Martin) - no-one was there at the time but he reports his mother woke up vomiting and she called 911 and called Peter (son who lives with them) to look after her (also named Peter). She is having a lot of issues with sleeping at night and will sometimes go to bed in the early hours of the morning and wake up late morning and will sometimes forget her pills at that point. Patient is orientated to self only. Disorientated to year (2000) and place (aware she was in hospital but thought she was in [place]). In the ER she was given famotidine and Phenergan with good resolution of her symptoms. Troponin was notably elevated at 0.083 - no chest pain or shortness of breath noted by patient. CT A/P showed a non-specific colitis, 1.7cm spiculated nodule in retroareolar right breast and intralobular septal thickening at the lung bases, small to moderate size pericardial effusions. UA is pending. CXR showed possible focal density in left midlung zone although WBC and procalcitonin negative. She was referred to Medicine for admission and ongoing management of elevated troponin, PNA, nausea and vomting. Admission Exam Per Admitting Provider Constitutional: well developed; + not well nourished and no acute distress Eyes: PERRL, conjunctivae normal, anicteric sclerae ENMT: external ear and nose normal, oropharynx normal Neck: trachea midline, no thyromegaly Respiratory: normal respiratory effort, lungs clear to auscultation Cardiovascular: Rate/Rhythm: regular rate and regular rhythm Heart Sounds: + murmur (systolic throughout loudest LUSB 5/6) Extremities: normal capillary refill; no calf tenderness and no pedal edema Gastrointestinal (Abdomen): Percussion/Palpation: + abdomen tender (suprapubic) and abdomen soft; no guarding and abdomen not rigid Skin: no rashes, warm and dry (venous dermatitis changes present) Psychiatric: Orientation: alert and oriented to person (self); + not oriented to place and + not oriented to time Genitourinary: no CVA tenderness Principal Diagnosis Enteritis Demand ischemia Discharge Exam General: Oriented to name only. No acute distress, cooperative. HEENT: Atraumatic, normocephalic. Visual acuity and hearing grossly intact. Pulm: CTAB A&P. -wheezes, -rales, -rhonchi. Symmetrical chest rise. No increase work of breathing. No respiratory distress. Cardiac: RRR, plus systolic murmur,. Radial pulses intact and symmetrical. Abdominal: Minimal tenderness suprapubic/infraumbilically without guarding or rebound,, nondistended, soft. BS present. Extremities: Chronic venous stasis changes, nontender. Discharge Data Allergies Allergy/AdvReac Type Severity Reaction Status Date / Time oxycodone Allergy Intermediate chest pain Verified 06/17/21 15:51 acetaminophen Allergy Unknown HEART Verified 06/17/21 15:51 RACING clarithromycin Allergy Unknown unknown Verified 06/17/21 15:51 Consultations 06/17/21 15:27 ED Decision to Admit Stat Ordered Studies 06/17/21 12:30 CT abd pelvis IV con only Stat CT SCAN OF THE ABDOMEN AND PELVIS WITH IV CONTRAST CLINICAL HISTORY: Generalized abdominal pain. Nausea and vomiting. COMPARISON STUDY: Abdominal CT dated 03/12/2015. TECHNIQUE: Following the IV administration of 94 cc of Optiray 320, CT scan of the abdomen and pelvis is performed from the lung bases to the proximal femora. Images are reviewed in the axial, sagittal, and coronal planes. IV contrast was administered without complication. A dose lowering technique was utilized adhering to the principles of ALARA. CT DOSE: 401.22 mGy.cm FINDINGS: Lung bases: The heart is enlarged noting a small to moderate pericardial effusion. The aortic valve leaflets are densely calcified. Intralobular septal thickening is noted at both lung bases. There is bibasilar scarring/atelectasis. No airspace consolidation typical for pneumonia or pleural effusion is identified. There is a small hiatal hernia. A 1.7 cm spiculated nodule is suggested in the retroareolar right breast on image #3. Liver: The contrast-enhanced liver is normal in size, contour, and attenuation. There is no intrahepatic biliary ductal dilatation. The hepatic veins and portal veins are patent. Gallbladder: Unremarkable. Spleen: Normal in size and attenuation. Pancreas: Unremarkable. Adrenal glands: Unremarkable. Kidneys: The contrast enhanced kidneys demonstrate mild cortical atrophy and are and without hydronephrosis. The kidneys enhance symmetrically. Foci of cortical scarring are noted in the right upper pole. A 4 mm nonobstructing calculus is seen on the left. Abdominal vasculature: The abdominal aorta is normal in course and caliber noting moderate atherosclerotic calcification. Bowel: There is no bowel obstruction. The colon is relatively decompressed. Infiltration is seen around the left colon. There is mild colonic diverticulosis without CT evidence of acute diverticulitis. The appendix is well-visualized and normal. Peritoneum: There is no intraperitoneal free air or abdominal ascites. Lymphadenopathy: None. Pelvic viscera: The bladder, uterus, and adnexa are normal as visualized. Skeletal structures: The skeletal structures are osteopenic. There is moderate to advanced lumbosacral spondylosis and scoliosis. No lytic or blastic lesions are seen. IMPRESSION: 1. Findings suggest a nonspecific colitis. Clinical correlation will be required. 2. No bowel obstruction. 3. A 1.7 cm spiculated nodule is suggested in the retroareolar right breast. This is not well assessed by CT and follow-up with mammography is recommended. 4. Cardiomegaly. Intralobular septal thickening at the lung bases could represent acute versus chronic congestive change. Clinical correlation will be required. 5. Left-sided nephrolithiasis. 6. Additional findings as above. ACT 112: Negative or not required by law. TTE Hospital Course (1) Nausea and vomiting: Madelyn presented with acute nausea/vomiting with CT consistent with nonspecific enterocolitis, symptoms resolved overnight during hospitalization. Patient refused additional care, demanded to be discharged on hospital day 1. Patient decision making by dementia and agitation, Case reviewed with her son, and reviewed etiologies as below and discharged home for follow-up. Risk/benefits of an additional overnight stay were discussed with her son, felt that risk of increased agitation and need for behavioral control with pharmacoth erapy outweighed the benefits of overnight observation. To do as outpatient: 1. Follow-up for symptoms of aortic stenosis, potential consideration of TAVR when symptomatic 2. Consider follow-up to cardiology for coronary artery disease, patient with demand ischemia in the setting of acute viral enteritis not requiring stenting or procedures at time of visit but at high risk. Patient reported that she would not want any interventions including catheterization at time of visit, discussed this with her son will who believes that she would not want interventions and would likely medical management only we will continue to follow. 3. Follow-up hemoglobin check 4. 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 Consider follow-up at family discretion 5. Follow-up LFTs after starting atorvastatin Gastroenteritis - Unclear etiology as poor historian - No current chest pain or shortness of breath, troponins were mildly elevated as discussed below - Non-specific colitis on CT but no diarrhea. Stool culture pending. No diarrhea during admission - UA negative - CXR: Initially one small area concerning for soft tissue overlap versus pneumonia follow-up CT-f/u shows no airspace consolidation consistent with PNA. Procalcitonin and WBC negative -Course consistent with resolved enteritis and demand ischemia, no antibiotics prescribed at discharge (2) Elevated troponin: EKG on admission with no acute ST/T wave changes, but poor R wave progression. -Patient had a troponin leak at 0.164 which then down trended 0.164 --> 0.147 --> 0.116 - CT noted the heart is enlarged noting a small to moderate pericardial effusion - BNP 1864 with moderatesevere aortic stenosis Patient remained clinically stable with no chest pain during admission TTE reviewed with cardiology, patient with progression of aortic stenosis to severe but with no symptoms of aortic stenosis. She had normal systolic function and normal pulmonary pressure, no wall motion abnormalities were appreciated. A small incidental pericardial effusion was noted. Discussed these findings with patient and her son, patient reported even if this were to worsen she would not want interventions or catheterization at this time. -Patient did not want further interventions during her hospitalization, case was reviewed with her nurse and she was discharged home with close follow-up to her primary care provider No arrhythmia noted on telemetry during admission Started on atorvastatin 40 mg daily (3) Normocytic anemia: -CBC 9.1, no signs of bleeding. Patient refused further needlesticks and draws during admission, recommended continued follow-up as outpatient. 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 Follow up as outpatient per family discretion (5) Pericardial effusion: -Suspect incidental, Lyme serology pending at time of discharge, no clinical signs of pericarditis or tamponade. Recommended follow-up as outpatient, may consider repeat echo as outpatient (6) Moderate aortic stenosis: Repeat TTE showed progression to severe, patient denies shortness of breath/chest pain/exercise limitation. Consistent with moderate progression to severe aortic stenosis without symptoms to prompt TAVR. Patient reports she would not want this procedure even if indicated at this time. Discussed with her son, discharged to follow-up as outpatient (7) HTN (hypertension): - Normotensive - enalapril 10mg daily (8) Dementia: - held her donepezil at current time as no short term benefit. Continue Lexapro. On day of discharge patient was able to get up from bed independently, and walked with a brisk brace to the elevators from the unit with no impairment to strength, or balance. Patient refusing additional services, discussed with son, given her rapid ambulation without chest pain or shortness of breath and refusal to engage with other hospital services patient was discharged home and PT additional evaluation was deferred. Total Time Total Time Spent Total Time Spent (In Minutes): Total time spent day of discharge including direct patient care, provider communication, review of labs and images, and documentation approximately 90 minutes. Discharge Plan Discharge Items Patient Disposition: Home - Self-Care Reason For Visit: COLITIS, NAUSEA AND VOMITING, PERICARDIAL EFFUSION Discharge Diagnosis: Enterocolitis Demand Ischemia Aortic Stenosis Activity: Per Instructions section Non-emergency contact: Primary Care Provider and Distribution Designer Call non-emergency contact if: you have any medication questions, your symptoms worsen, your pain is not controlled, your pain is worsening and your pain is unusual for you Follow-up/Referrals: Ketan Wagner MD [Primary Care Provider] - 06/25/21 11:00 am Diet: Regular Addtl Attending Provider Instructions: You are seen in the hospital for an acute illness with nausea and vomiting. Yo ur nausea and vomiting and symptoms improved overnight. You are noted to have slightly elevated heart markers, these were decreasing at time of discharge. An ultrasound of your heart showed normal pumping function with severe aortic stenosis. This was discussed with you and your son. No acute interventions are warranted, it is recommended that you follow-up as an outpatient with your primary care provider and potentially with cardiology as an outpatient. It is been recommended that you take a cholesterol medicine to help protect you from heart attacks, called atorvastatin, discussed below. You have been prescribed a medication, atorvastatin. This medication reduces cholesterol and can also help prevent heart attacks. Please take atorvastatin 40 mg once daily. Please follow-up with your primary care physician regarding this medication, you should have LFTs (blood work) checked in approximately 2 weeks. If you develop any new or worsening symptoms including fever, chills, sweats, chest pain, chest pressure, difficulty breathing, uncontrolled nausea/vomiting, rash, wheezing, passing out or nearly passing out, bleeding, black/bloody bowel movements, or other new or concerning symptoms please call your primary care physician at [phone], or call 911 for re-evaluation in the emergency department if you are very concerned. A followup appointment is being scheduled for you with Dr. Wagner. You should be seen seen within 10 days. You should receive a call to confirm this appointment. If you do not receive a call within 48 hours to confirm this appointment, or need to change this appointment, please call the provider's office at [phone]. Pending Studies at Discharge: No Stand-Alone Forms: My [facility] [employer], Smoking Cessation Medications and DC Order Prescriptions: New atorvastatin 40 mg tablet 40 mg PO DAILY 30 Days Qty: 30 RF: 0 Continued lorazepam 0.5 mg tablet 0.25 - 0.5 mg PO DAILY PRN (Reason: anxiety) Qty: 20 RF: 0 ramipril 2.5 mg capsule 2.5 mg PO DAILY Qty: 90 RF: 3 escitalopram oxalate 20 mg tablet 20 mg PO DAILY Qty: 90 RF: 3 donepezil 10 mg tablet 10 mg PO DAILY Qty: 90 RF: 3 Centrum Silver 0.4-300-250 mg-mcg-mcg tablet 1 tab PO DAILY RF: 0 Discharge Orders: Discharge Order (Routine); Ordered 06/18/21 Ordered By: Ketan Quevedo Admission Data Admit Date/Time: 06/17/21 15:47 Attending Provider: Ketan Quevedo Admit Provider: Rupesh Jane Primary Care Provider: Ketan Wagner Other Providers: Ketan Quevedo Other Interventions: Discharge Summary Assessment (RN) Last Done: 06/18/21 16:15 Coding Level of Care Code D/C DAY MANAGEMENT >30 MINS Diagnoses Nausea and vomiting R11.2 Vomiting Intractability: non-intractable Vomiting type: unspecified Elevated troponin R77.8 Normocytic anemia D64.9 Breast nodule N63.0 Pericardial effusion I31.3 Moderate aortic stenosis I35.0 HTN (hypertension) I10 Dementia F03.90
--- NOTE | 2021-06-18 17:36 | XCELERA ---
[id number]
== END 2021-06-18 18:14 | disposition home or self-care (01) ==
LOC: 2N 11:44 → ED 11:44 → SUATTDRO 15:47 → 2N 17:56
DX: Z79.899 Other long term (current) drug therapy; Z85.3 Personal history of malignant neoplasm of breast; J18.9 Pneumonia, unspecified organism; R77.8 Other specified abnormalities of plasma proteins; Z20.822 Contact with and (suspected) exposure to COVID-19; R11.2 Nausea with vomiting, unspecified; I31.3 Pericardial effusion (noninflammatory); Z88.1 Allergy status to other antibiotic agents; D64.9 Anemia, unspecified; Z82.49 Family history of ischemic heart disease and other diseases of the circulatory system; Z88.6 Allergy status to analgesic agent; Z80.0 Family history of malignant neoplasm of digestive organs; I10 Essential (primary) hypertension; G93.9 Disorder of brain, unspecified; I35.0 Nonrheumatic aortic (valve) stenosis; Z88.5 Allergy status to narcotic agent

== ENCOUNTER 2022-06-01 10:56 | Inpatient (IN) ==
[2022-06-01 12:56] LABS: Basophils # (auto) 0.02 K/uL (0-0.2); Basophils % (auto) 0.5 %; Eosinophils # (auto) 0.07 K/uL (0-0.50); Eosinophils % (auto) 1.7 %; Hematocrit (blood only) 29.1 % (34.1-44.9); Hemoglobin 9.9 g/dl (12.0-16.0); Immature Granulocytes # (auto) 0.01 K/uL (0.00-0.02); Immature Granulocytes % (auto) 0.2 %; Lymphocytes # (auto) 1.17 K/uL (1.2-3.4); Lymphocytes % (auto) 29.1 %; Mean Corpuscular Hemoglobin 31.6 pg (25.0-34.0); Mean Platelet Volume 10.1 fL (9.4-12.3); Monocytes # (auto) 0.31 K/uL (0.24-0.82); Monocytes % (auto) 7.7 %; Neutrophils # (auto) 2.44 K/uL (1.4-6.5); Neutrophils % (auto) 60.8 %; Platelet Count 143 K/uL (130-400); RDW Coefficient of Variation 12.8 % (11.5-14.5); RDW Standard Deviation 43.8 fL (36.4-46.3); Red Blood Count 3.13 M/uL (3.93-5.22); White Blood Count 4.02 K/ul (4.8-10.8)
[2022-06-01 13:24] LABS: Albumin Globulin Ratio 1.8 (0.9-2); Albumin Level 3.9 gm/dl (3.4-5.0); BUN Creatinine Ratio 26.9 (10-20); Bilirubin,Total 0.8 mg/dl (0.2-1.0); Creatinine Clr Calc Pharmacy 38.3 ml/min; Est GFR (Non-African American) 55.3 ml/min; Globulin 2.2 gm/dl (2.5-4.0); Total Protein 6.1 gm/dl (6.0-8.3)
[2022-06-01 13:45] LABS: Appearance Urine Clear (Clear); Bacteria Urine Automated Negative (Negative); Bilirubin Urine Negative (Negative); Blood Urine Negative (Negative); Color Urine Yellow; Epithelial Cell Urine Auto >30 /lpf (0-5); Glucose Urine UA Negative (Negative); Ketones Urine Negative (Negative); Leukocyte Esterase Urine Trace (Negative); Nitrite Urine Negative (Negative); Protein Urine Negative (Negative); RBC Urine Automated 0-4 /hpf (0-4); Specific Gravity Urine 1.007 (1.000-1.030); Urobilinogen Urine Negative (Negative); pH Urine 7.5 (4.5-7.5)
--- NOTE | 2022-06-01 15:25 | Emergency Department Note ---
Impression & Plan Cognitive decline, Hypertension ED Provider Note NAME: AZUL BAKER AGE: 87 SEX: F ARRIVES VIA: Ambulance INFORMANT: Patient, EMS ED PROVIDER(S): Bethel Teixeira MD CHIEF COMPLAINT: Dementia. Placement PLAN: Disposition: Home MEDICAL DECISION MAKING: The patient is a pleasant 87-year-old woman with a past medical history of dementia, aortic stenosis, hypertension who presents to the emergency department via EMS after the patient and her spouse were found by her son and decision- maker where they had apparently locked themselves in the bedroom and the son had noticed that the stove was left on. This prompted the son to be concerned that the patient and her spouse were no longer safe to be living at home under their current conditions. The patient does live at home with another son who is traveling for work and not around frequently. On arrival the patient is no acute distress, afebrile, BP 170s/50 and otherwise stable vital signs. She is mildly confused to situation unsure of exactly why she is in the emergency department thinking she was brought here for a "checkup". She denies any physical complaints. She reports feels anxious that her who is also a patient in her room is given her stress as he was noted to be getting out of his stretcher to "make is bed". EKG without overt acute ischemia. WBC 4K nonspecific. H/H similar to prior. Platelets within normal limits. Chemistry without metabolic acidosis. Electrolytes and LFTs without significant abnormality. TSH within normal limits. UA without convincing evidence of infection. COVID-19 RNA, PERRY test was negative. Our case management team did meet with the patient's son, the patient and her spouse and it was decided that the patient and her spouse are not able to live at home safely. Referrals were made but none are available to have the patient placed today. [facility] is expected to have beds tomorrow. Thus we will proceed with admission for further management until placement is possible. Case was discussed with Dr. Harper, [facility] hospitalist, who will evaluate the patient for admission. Triage Nursing notes reviewed and agree them. Prior medical records reviewed Vital Signs: reviewed and remarkable for hypertension. Differential diagnosis: Infection, dehydration, metabolic abnormality, hypo/hyperglycemia, electrolyte disturbance, anemia, hypoxia, cardiac sources, intracerebral event, toxicologic, neurologic, as well as other pathologies. ER treatment provided: See below. Diagnostics interpreted by me: ECG: Normal sinus rhythm, 63 bpm, no ectopy, no overt ST elevation or dep ression, QTC 456, QRS 92. Cardiac Monitoring: An order for continuous cardiac monitoring was placed and demonstrated Normal sinus rhythm, 63 bpm, no ectopy. Laboratory studies: See below Imaging studies: See below Consultation(s): Dr. Harper, [facility] hospitalist HPI: The patient is a pleasant 87-year-old woman with a past medical history of dementia, aortic stenosis, hypertension who presents to the emergency department via EMS after the patient and her spouse were found by her son and decision- maker where they had apparently locked themselves in the bedroom and the son had noticed that the stove was left on. This prompted the son to be concerned that the patient and her spouse were no longer safe to be living at home under their current conditions. The patient does live at home with another son who is traveling for work and not around frequently. ROS: See above HPI for pertinent positives & negatives. A total of 10 systems reviewed and were otherwise negative. VITALS:See Below PHYSICAL EXAMINATION: GENERAL: Awake, alert, well-appearing, in no distress, pleasantly confused. HENT: Normocephalic, atraumatic. Oropharynx unremarkable. EYES: Normal conjunctiva. Sclera non-icteric. NECK: Supple. No nuchal rigidity. FROM. No JVD. RESPIRATORY: Clear to auscultation. CARDIAC: Regular rate, normal rhythm. Extremities warm and well perfused. Pulses equal. ABDOMEN: Soft, non-distended. No tenderness to palpation. No rebound or guarding. No masses. RECTAL: Deferred. MUSCULOSKELETAL: Chest examination reveals no tenderness. The back is symmetrical on inspection without obvious abnormality. There is no CVA tenderness to palpation. No joint edema. LOWER EXTREMITIES: Calves are equal size bilaterally and non-tender. No edema. No discoloration. NEURO: Alert to self and place. Confused to situation. No focal sensory or motor deficits noted. SKIN: No rash or jaundice noted. Bethel Teixeira MD Past Med/Surg History Medical History Age-related macular degeneration, wet, both eyes Caregiver stress Cerebral microvascular disease Chronic anemia Chronic right shoulder pain Family history of colon cancer History of breast cancer HTN (hypertension) Injury of right upper arm Kidney stones Left carotid bruit Moderate aortic stenosis Multiple renal cysts Nausea and vomiting Pneumonia Pulmonary nodules Submandibular gland mass Surgical History H/O lithotripsy History of partial mastectomy with axilary of lymphadenectomy R breast History of tonsillectomy and adenoidectomy Hx of tonsillectomy Status post biopsy of skin Family History Father Myocardial infarction Hypertension Lung cancer Mother Hypertension Denies family history of Ovarian cancer Prostate cancer Breast cancer Colorectal cancer Social History Smoking Status: Never smoker Second Hand Exposure: No; Do You Dip or Chew Tobacco: No; Hx Alcohol Use: No Hx Substance Use: No Preferred Language: Romanian Communication Ability: Effective Visual Impairment: Limited Hearing Ability: Normal Communication Electronic Technician Required: No Beliefs That Will Affect Care: None marital status: Current Living Situation: Alone, Spouse and Family Current Living Situation Comment: home with son and current occupational status: retired Other Information That Helps Us Care for You: No Feels Safe at Home: Yes Safety Concerns: Feels Safe At This Time caffeine: Yes (Coffee x 1 cup per day) during the past year weight has: remained stable Physical Activity Frequency: Daily Physical Activity Frequency Comment: stairs in home Seatbelt Use: always Sunscreen Use: No (never in sun) Assistive Devices: Glasses Allergies Allergies Allergy/AdvReac Type Severity Reaction Status Date / Time oxycodone Allergy Intermediate chest pain Verified 01/13/22 09:01 acetaminophen Allergy Unknown HEART Verified 01/13/22 09:01 RACING clarithromycin Allergy Unknown unknown Verified 01/13/22 09:01 Home Meds Home Medications Medication Instructions Recorded Confirmed voaxifho-zvi-hehcc acid 0.4 1 tab PO DAILY 07/17/19 01/13/22 mg-lycopene 300 mcg-lutein 250 mcg tablet (Centrum Silver) Previous Rx's Medication Instructions Recorded lorazepam 0.5 mg tablet 0.25 - 0.5 mg PO DAILY PRN anxiety 08/14/19 #20 tabs ramipril 2.5 mg capsule 2.5 mg PO DAILY #90 caps 11/05/20 atorvastatin 40 mg tablet 40 mg PO DAILY 30 days #90 tabs 07/16/21 escitalopram oxalate 20 mg tablet 20 mg PO DAILY #90 tabs 01/27/22 donepezil 10 mg tablet 10 mg PO DAILY #90 tabs 04/23/22 Results & Data (ED) Vital Signs Vital Signs - 24 hr 06/01/22 11:02 06/01/22 12:49 06/01/22 12:49 Temperature 36.8 C Temperature Source Oral Pulse Rate 66 Pulse Rate [Apical] 59 L Respiratory Rate 18 18 Respiratory Effort / Characteristics Non-Labored Spontaneous Non-Labored Spontaneous Respiratory Depth Normal Normal Respiratory Pattern Regular Blood Pressure 178/57 H Blood Pressure [Right Arm] 178/65 H Blood Pressure Mean 97 Blood Pressure Mean [Right Arm] 102 Pulse Oximetry 98 98 98 Oxygen Delivery Method Room Air Room Air Room Air Sepsis Recent Fever Within 48 Hours No Sepsis New/Unexplained Change in Mental Status No Sepsis Action Taken by Nursing No Action Required 06/01/22 14:00 06/01/22 15:42 Temperature Temperature Source Pulse Rate Pulse Rate [Apical] 67 71 Respiratory Rate 16 16 Respiratory Effort / Characteristics Non-Labored Spontaneous Non-Labored Spontaneous Respiratory Depth Normal Normal Respiratory Pattern Blood Pressure Blood Pressure [Right Arm] 130/61 135/55 L Blood Pressure Mean Blood Pressure Mean [Right Arm] 84 81 Pulse Oximetry 98 98 Oxygen Delivery Method Room Air Room Air Sepsis Recent Fever Within 48 Hours Sepsis New/Unexplained Change in Mental Status Sepsis Action Taken by Nursing Laboratory Data Attestation: I reviewed the patient's lab results. Result diagrams: 06/01/22 12:46 06/01/22 12:46 Lab Results 06/01/22 06/01/22 06/01/22 Range/Units 12:46 12:46 12:46 WBC 4.02 L (4.8-10.8) K/ul RBC 3.13 L (3.93-5.22) M/uL Hgb 9.9 L (12.0-16.0) g/dl Hct 29.1 L (34.1-44.9) % MCV 93.0 (80.0-100.0) fL MCH 31.6 (25.0-34.0) pg MCHC 34.0 (32.0-36.0) g/dL RDW Std Deviation 43.8 (36.4-46.3) fL RDW Coeff of Deni 12.8 (11.5-14.5) % Plt Count 143 (130-400) K/uL MPV 10.1 (9.4-12.3) fL Immature Gran % (Auto) 0.2 % Neut % (Auto) 60.8 % Lymph % (Auto) 29.1 % [place] % (Auto) 7.7 % Eos % (Auto) 1.7 % Baso % (Auto) 0.5 % Neut # (Auto) 2.44 (1.4-6.5) K/uL Lymph # (Auto) 1.17 L (1.2-3.4) K/uL [place] # (Auto) 0.31 (0.24-0.82) K/uL Eos # (Auto) 0.07 (0-0.50) K/uL Baso # (Auto) 0.02 (0-0.2) K/uL Immature Gran # (Auto) 0.01 (0.00-0.02) K/uL Sodium 142 (136-145) mmol/L Potassium 4.0 (3.5-5.1) mmol/L Chloride 110 H (98-107) mmol/L Carbon Dioxide 28 (21-32) mmol/L Anion Gap 4 (3-11) BUN 25 H (6-23) mg/dl Creatinine 0.93 (0.6-1.2) mg/dl Est Cr Clr Drug Dosing 38.3 ml/min Est GFR ( Amer) 64.0 ml/min Est GFR (Non-Af Amer) 55.3 ml/min BUN/Creatinine Ratio 26.9 H (10-20) Glucose 84 (70-99(Fasting)) mg/dl Calcium 9.0 (8.5-10.1) mg/dl Total Bilirubin 0.8 (0.2-1.0) mg/dl AST 21 (13-39) U/L ALT 21 (7-52) U/L Alkaline Phosphatase 93 (34-104) U/L Total Protein 6.1 (6.0-8.3) gm/dl Albumin 3.9 (3.4-5.0) gm/dl Globulin 2.2 L (2.5-4.0) gm/dl Albumin/Globulin Ratio 1.8 (0.9-2) TSH 2.232 (0.300-4.500) uIu/ml Urine Color Urine Appearance (Clear) Urine pH (4.5-7.5) Ur Specific [place] (1.000-1.030) Urine Protein (Negative) Urine Glucose (UA) (Negative) Urine Ketones (Negative) Urine Blood (Negative) Urine Nitrite (Negative) Urine Bilirubin (Negative) Urine Urobilinogen (Negative) Ur Leukocyte Esterase (Negative) Urine WBC (Auto) (0-5) /hpf Urine RBC (Auto) (0-4) /hpf U Hyaline Cast (Auto) (0-5) /lpf U Epithel Cells (Auto) (0-5) /lpf Urine Bacteria (Auto) (Negative) SARS-CoV-2, RNA, NAAT (NEGATIVE) 06/01/22 06/01/22 Range/Units 13:09 13:10 WBC (4.8-10.8) K/ul RBC (3.93-5.22) M/uL Hgb (12.0-16.0) g/dl Hct (34.1-44.9) % MCV (80.0-100.0) fL MCH (25.0-34.0) pg MCHC (32.0-36.0) g/dL RDW Std Deviation (36.4-46.3) fL RDW Coeff of Deni (11.5-14.5) % Plt Count (130-400) K/uL MPV (9.4-12.3) fL Immature Gran % (Auto) % Neut % (Auto) % Lymph % (Auto) % [place] % (Auto) % Eos % (Auto) % Baso % (Auto) % Neut # (Auto) (1.4-6.5) K/uL Lymph # (Auto) (1.2-3.4) K/uL [place] # (Auto) (0.24-0.82) K/uL Eos # (Auto) (0-0.50) K/uL Baso # (Auto) (0-0.2) K/uL Immature Gran # (Auto) (0.00-0.02) K/uL Sodium (136-145) mmol/L Potassium (3.5-5.1) mmol/L Chloride (98-107) mmol/L Carbon Dioxide (21-32) mmol/L Anion Gap (3-11) BUN (6-23) mg/dl Creatinine (0.6-1.2) mg/dl Est Cr Clr Drug Dosing ml/min Est GFR ( Amer) ml/min Est GFR (Non-Af Amer) ml/min BUN/Creatinine Ratio (10-20) Glucose (70-99(Fasting)) mg/dl Calcium (8.5-10.1) mg/dl Total Bilirubin (0.2-1.0) mg/dl AST (13-39) U/L ALT (7-52) U/L Alkaline Phosphatase (34-104) U/L Total Protein (6.0-8.3) gm/dl Albumin (3.4-5.0) gm/dl Globulin (2.5-4.0) gm/dl Albumin/Globulin Ratio (0.9-2) TSH (0.300-4.500) uIu/ml Urine Color Yellow Urine Appearance Clear (Clear) Urine pH 7.5 (4.5-7.5) Ur Specific [place] 1.007 (1.000-1.030) Urine Protein Negative (Negative) Urine Glucose (UA) Negative (Negative) Urine Ketones Negative (Negative) Urine Blood Negative (Negative) Urine Nitrite Negative (Negative) Urine Bilirubin Negative (Negative) Urine Urobilinogen Negative (Negative) Ur Leukocyte Esterase Trace H (Negative) Urine WBC (Auto) 1-5 (0-5) /hpf Urine RBC (Auto) 0-4 (0-4) /hpf U Hyaline Cast (Auto) 1-5 (0-5) /lpf U Epithel Cells (Auto) >30 H (0-5) /lpf Urine Bacteria (Auto) Negative (Negative) SARS-CoV-2, RNA, NAAT NEGATIVE (NEGATIVE) Administered Medications Enoxaparin Sodium (Enoxaparin Inj 40 Mg/0.4 Ml Syr) 40 mg SQ Q24H JUAN RAMON Stop: 07/01/22 19:29 Last Admin: 06/01/22 20:51 Dose: 40 mg Documented By: USP Discharge Plan Visit Data Chief Complaint: Illness Stated Complaint: EVAL FOR PLACEMENT ED Provider: Bethel Teixeira Discharge Problem: Cognitive decline, Hypertension Patient Disposition: Admitted As Inpatient Discharge Instructions Interventions: ED Discharge Assessment Last Done: 06/01/22 18:27
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
--- NOTE | 2022-06-01 16:32 | Electrocardiogram Report ---
Test Reason : Blood Pressure : / mmHG Vent. 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
[2022-06-01] MEDS: ENOXAPARIN INJ 40 MG/0.4 ML SYR SQ SCH (20:51)
[2022-06-02] MEDS ORDERED: ENALAPRIL MALEATE 10 MG TAB PO SCH (09:00)
[2022-06-02] MEDS: ATORVASTATIN 40 MG TAB PO SCH (09:53)
[2022-06-02] MEDS: ESCITALOPRAM OXALATE 20 MG TAB PO SCH (09:53)
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
[2022-06-02] MEDS ORDERED: SODIUM CHLORIDE 0.9% 1000ML 500 ML IV ONE (16:14)
[2022-06-02] MEDS: ENOXAPARIN INJ 40 MG/0.4 ML SYR SQ SCH (20:09)
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
[2022-06-03] MEDS: ATORVASTATIN 40 MG TAB PO SCH (08:48)
[2022-06-03] MEDS: ESCITALOPRAM OXALATE 20 MG TAB PO SCH (08:49)
[2022-06-03] MEDS: ENALAPRIL MALEATE 5 MG TAB PO SCH (11:05)
[2022-06-03] MEDS: ENOXAPARIN INJ 40 MG/0.4 ML SYR SQ SCH (20:01)
[2022-06-04] MEDS: ENALAPRIL MALEATE 5 MG TAB PO SCH (08:53)
[2022-06-04] MEDS: ATORVASTATIN 40 MG TAB PO SCH (08:53)
[2022-06-04] MEDS: ESCITALOPRAM OXALATE 20 MG TAB PO SCH (09:40)
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
[2022-06-04] MEDS: ENOXAPARIN INJ 40 MG/0.4 ML SYR SQ SCH (20:35)
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
[2022-06-05] MEDS: ESCITALOPRAM OXALATE 20 MG TAB PO SCH (08:46)
[2022-06-05] MEDS: ATORVASTATIN 40 MG TAB PO SCH (08:46)
[2022-06-05] MEDS: ENALAPRIL MALEATE 5 MG TAB PO SCH (08:46)
== END 2022-06-05 14:22 | disposition home or self-care (01) | DRG 884 ==
LOC: ED 10:56 → 3W 10:56